=== PATIENT | female | born 1995 | race Hispanic/Latino ===

== ENCOUNTER 2017-05-16 00:49 | Emergency (ER) | payer OTHER ==
[2017-05-16 01:25] VITALS: BMI 18.4
[2017-05-16 01:31] VITALS: BP 119/75; PULSE 81; RESP 16; TEMP 98.6; O2SAT 97
[2017-05-16] MEDS ORDERED: Oxycodone/Acetaminophen 5/325 mg Tab PO STA (01:59)
[2017-05-16] MEDS ORDERED: Oxycodone/Acetaminophen 5/325 mg Tab ONE (02:13)
--- NOTE | 2017-05-16 02:13 | ED PDOC ---
HPI: General Adult Time Seen by Provider: 05/16/17 01:25 Chief Complaint (Nursing): Dental Pain History Per: Patient Additional Complaint(s): Pt. states on 04/09/2017 she saw her dentist who informed her that she required a root canal as she was having pain in the L upper tooth. She was unable to afford the procedure therefore she was prescribed Clindamycin for 10 days which provided good relief. Earlier this week pain returned to the L upper tooth. She has been taking Motrin 1200mg per dose (1100, 2100 yesterday). Last dose of Motrin was at 2100 yesterday. Further states that she has an appointment with her dentist today at 0900. Also reports that her friend told her she had a fever by feeling her forehead but reports not taking her temperature nor feeling febrile. Denies abdominal pain, trauma, sore throat, nasal congestion, N /V. Past Medical History Reviewed: Historical Data, Nursing Documentation, Vital Signs Vital Signs: Last Vital Signs Temp 98.6 F 05/16/17 01:26 Pulse 81 05/16/17 01:26 Resp 16 05/16/17 01:26 BP 119/75 05/16/17 01:26 Pulse Ox 97 05/16/17 02:54 - Family History Family History: States: No Known Family Hx - Allergies Allergies/Adverse Reactions: Allergies Allergy/AdvReac Type Severity Reaction Status Date / Time No Known Allergies Allergy Verified 05/16/17 01:25 Review of Systems ROS Statement: Except As Marked, All Systems Reviewed And Found Negative Physical Exam - Physical Exam Appears: Positive for: Well, Non-toxic, No Acute Distress Head Exam: Positive for: ATRAUMATIC, NORMAL INSPECTION, NORMOCEPHALIC Skin: Positive for: Normal Color, Warm. Negative for: Rash Eye Exam: Positive for: Normal appearance ENT: Positive for: Other (L maxillary molar tooth with tenderness and mild gingival swelling) Neurologic/Psych: Positive for: Alert, Oriented. Negative for: Aphasia, Facial Droop - ECG O2 Sat by Pulse Oximetry: 97 - Progress ED Course And Treament: Percocet 1 tab PO ordered. 0310 On re-evaluation, pt. reports good pain relief. Discussed need for antibiotic. Pt. states she will get antibiotic from her dentist later on today when she goes for her appointment. Instructed to return to ED if unable to make appointment as she will likely need antibiotic. Disposition - Clinical Impression Clinical Impression: Toothache - Patient ED Disposition Is Patient to be Admitted: No - Disposition Referrals: Sarahi Luo [Outside] Disposition: Routine/Home Disposition Time: 03:10 Condition: IMPROVED Additional Instructions: GO TO YOUR DENTIST APPOINTMENT TODAY WITHOUT FAIL RETURN TO ED IF YOU MISS YOUR DENTIST APPOINTMENT FOR ANTIBIOTIC TREATMENT OR IF SYMPTOMS WORSEN Instructions: Dental Pain (DC) Forms: [facility] AM AT [facility] ([place])
== END 2017-05-16 03:17 | disposition home or self-care (01) ==
LOC: H.ER 00:49
DX: K08.89 Other specified disorders of teeth and supporting structures (principal)